=== PATIENT | female | born 1985 | race Caucasian/White ===

== ENCOUNTER 2023-12-22 12:39 | Emergency (ER) | payer OTHER, SELFPAY ==
--- NOTE | ~2023-12-22 | XR_ITS ---
EXAMINATION: XR finger 4th RT min 2V DATE: 12/22/2023 13:31 INDICATION: Right hand fourth digit injury. TECHNIQUE: 4 views of right hand fourth digit were obtained. COMPARISON: None. FINDINGS: There is a comminuted intra-articular fracture of fourth distal phalanx. There is 1 mm disp lacement of the fracture fragment at the dorsal base of fourth distal phalanx. Joint spaces are apurva l. IMPRESSION: 1. Comminuted intra-articular fracture of fourth distal phalanx. Reviewed, dictated and finalized at location A.
[2023-12-22 12:50] VITALS: BP 116/71; PULSE 59; RESP 15; TEMP 36.8; O2SAT 100
--- NOTE | 2023-12-22 13:22 | ED_ITS ---
HPI - General Adult General Chief complaint: Extremity Injury, Upper Stated complaint: Right Ring Finger Injury Source: patient Mode of arrival: ambulatory Limitations: no limitations History of Present Illness HPI narrative: Patient presents for evaluation of pain in the right ring finger since 11/28/2023. She indicates she was playing softball and the ball bounced up off the ground hitting the 4th digit. She now has 5/10 pain in the affected area with palpation or movement. Denies considerable pain otherwise. She has taken tylenol for her symptoms. She has associated numbness and redness to distal phalanx. Related Data Home Medications Medication Instructions Recorded Confirmed acyclovir 400 mg tablet mg 12/22/23 atenolol 50 mg tablet mg 12/22/23 Allergies Allergy/AdvReac Type Severity Reaction Status Date / Time fluconazole [From Diflucan] Allergy Hives Verified 12/22/23 13:13 latex Allergy Rash Verified 12/22/23 13:13 Review of Systems Review of Systems: CONSTITUTIONAL: Denies fever, chills, or sweats. EYES: Denies visual changes, redness, or discharge. ENT: Denies rhinorrhea, congestion, sore throat, or otalgia. CARDIOVASCULAR: Denies chest pain, palpitations, or edema. RESPIRATORY: Denies cough or dyspnea. GASTROINTESTINAL: Denies abdominal pain, nausea, vomiting, or diarrhea. GENITOURINARY: Denies dysuria or hematuria. SKIN: Reports redness and itching to the distal phalanx of the right ring finger MUSCULOSKELETAL: There is tenderness to the distal phalanx of the right ring finger NEUROLOGIC: Denies headache, numbness, dizziness, or weakness. PSYCHIATRIC: Denies anxiety or depression. PMFSH Past Medical History Medical History Hypertension Family History Family History Mother Family history unknown Social History Social History (Updated 12/22/23 @ 13:24 by BARRY Suárez, ) Living arrangements: with family Gender identity (if verbalized by the patient): Female Spiritual care concerns: No Exam Narrative: GENERAL: Well-appearing, well-nourished, and in no acute distress. HEAD: Normocephalic, atraumatic. EYES: PERRLA and EOMI. ENT: Nares clear, no rhinorrhea or epistaxis. Mucous membranes moist. Oropharynx without tonsillar hypertrophy exudate or other lesions. Bilateral TMs pearly hernandez nonbulging NECK: Supple. No adenopathy or masses. No carotid bruits or JVD CHEST: Clear to auscultation. No respiratory distress. No wheezes rales or rhonchi HEART: Regular rate and rhythm. No murmur heard. Normal peripheral pulses. ABDOMEN: Soft, nontender, nondistended, normal active bowel sounds. EXTREMITIES: Normal range of motion. There is tenderness to the distal phalanx of the right ring finger SKIN: There is erythema to the distal phalanx of the right ring finger NEURO: No focal deficits. Alert and oriented x3. PSYCH: Normal mood and affect. Course Course Emergency Course: This is a 38-year-old female who presented for evaluation of an injury to the right ring finger. X-ray showed fracture of distal phalanx. Provided with finger splint. Will refer her to Hand surgery. Discharge with hydrocodone. Follow-up primary provider. Go to the ER for intractable pain, temperature changes or worsening symptoms. Patient in agreement with care Level of Care: Express Care Visit Vital Signs Vital signs: Vital Signs Temperature 36.8 C 12/22/23 12:50 Pulse Rate 59 L 12/22/23 12:50 Respiratory Rate 15 12/22/23 12:50 Blood Pressure 116/71 12/22/23 12:50 Pulse Oximetry 100 12/22/23 12:50 Oxygen Delivery Room Air 12/22/23 12:50 Temperature 36.8 C 12/22/23 12:50 Pulse Rate 59 L 12/22/23 12:50 Respiratory Rate 15 12/22/23 12:50 Blood Pressure 116/71 12/22/23 12:50 Pulse Oximetry 100 12/22/23 12:50 Oxygen Delivery Room Air 12/22/23 12:50 Procedures Orthopedic Splinting/Casting Injury #1: Splinting/Casting Date: 12/22/23 Splinting/Casting Time: 13:51 Side: right Upper Extremity Immobilizer: aluminum form splint Splint: prefabricated Pre-Formed: metal foam finger splint Pre-Procedure Neuro Vascular Exam: normal Post-Procedure Neuro Vascular Exam: normal Medical Decision Making Vital Signs Vital Signs: Vital Signs Temperature 36.8 C 12/22/23 12:50 Pulse Rate 59 L 12/22/23 12:50 Respiratory Rate 15 12/22/23 12:50 Blood Pressure 116/71 12/22/23 12:50 Pulse Oximetry 100 12/22/23 12:50 Oxygen Delivery Room Air 12/22/23 12:50 Temperature 36.8 C 12/22/23 12:50 Pulse Rate 59 L 12/22/23 12:50 Respiratory Rate 15 12/22/23 12:50 Blood Pressure 116/71 12/22/23 12:50 Pulse Oximetry 100 12/22/23 12:50 Oxygen Delivery Room Air 12/22/23 12:50 Imaging Data Radiologist's impression: EXAMINATION: XR finger 4th RT min 2V DATE: 12/22/2023 13:31 INDICATION: Right hand fourth digit injury. TECHNIQUE: 4 views of right hand fourth digit were obtained. COMPARISON: None. FINDINGS: There is a comminuted intra-articular fracture of fourth distal phalanx. There is 1 mm displacement of the fracture fragment at the dorsal base of fourth distal phalanx. Joint spaces are normal. IMPRESSION: 1. Comminuted intra-articular fracture of fourth distal phalanx. Discharge Plan Discharge Clinical Impression: Distal phalanx or phalanges, closed fracture Qualifiers: Encounter type: initial encounter Finger: ring finger Laterality: right Patient Disposition: Home, Self-Care Condition: Stable Instructions: Antibiotic Form, Finger Fracture (ED) Patient Language: Bulgarian Prescriptions: New hydrocodone-acetaminophen 5-325 mg tablet 1 - 2 tablet PO Q8H PRN (Reason: pain) Qty: 12 0RF No Action acyclovir 400 mg tablet atenolol 50 mg tablet Follow-up/Referrals: Zach uBrns MD [Physician] - [facility],JENNIFER Song [Primary Care Provider] - Time of Disposition: 13:48
== END 2023-12-22 13:55 | disposition home or self-care (01) ==
PROVIDERS: Emergency Provider Nurse Practitioner; PCP Physician Assistant
DX: S62.634A Displaced fracture of distal phalanx of right ring finger, initial encounter for closed fracture (principal); W21.07XA Struck by softball, initial encounter; Y93.64 Activity, baseball; I10 Essential (primary) hypertension
CPT/HCPCS: 29130; 73140; 99214; G0463

== ENCOUNTER 2024-01-28 11:40 | Outpatient (CLI) | payer OTHER, SELFPAY ==
--- NOTE | ~2024-01-28 | XR_ITS ---
EXAMINATION: XR finger 4th RT min 2V DATE: 01/28/2024 12:00 INDICATION: Displaced fracture of the distal phalanx of the right fourth finger TECHNIQUE: Dorsal palmar, lateral and oblique views of the right fourth digit were obtained COMPARISON: 12/22/2023 FINDINGS: Again seen is a nondisplaced comminuted fracture of the tuft of the right fourth distal phalanx. Ther e is decreased lucency along the fracture planes consistent with some interval healing. Again seen is intra-articular fracture with minimal displacement of a small fragment involving the dorsal base of the distal phalanx with unchanged 1 mm step-off along the articular surface. There is similar decreas ed lucency along the fracture plane also consistent with some interval healing. No new fractures iden tified. 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 IMPRESSION: 1. Healing intra-articular fracture at the base of the right fourth distal phalanx with unchanged 1 m m step-off at the distal articular surface. 2. Healing nondisplaced comminuted fracture of the tuft of the right fourth distal phalanx. Reviewed, dictated and finalized at location A. LE BAR ASSEMBLER IMPRESSION: 1. Healing intra-articular fracture at the base of the right fourth distal phal anx with unchanged 1 mm step-off at the distal articular surface. 2. Healing nondisplaced comminuted fracture of the tuft of the right fourth dis cristin phalanx.
== END 2024-01-28 11:41 | disposition home or self-care (01) ==
PROVIDERS: PCP Physician Assistant; Visit Provider Physician Assistant Surgical
DX: S62.634D Displaced fracture of distal phalanx of right ring finger, subsequent encounter for fracture with routine healing (principal); X58.XXXD Exposure to other specified factors, subsequent encounter
CPT/HCPCS: 73140

== ENCOUNTER 2024-10-31 09:08 | Emergency (ER) | payer OTHER, SELFPAY ==
--- OUTSIDE RECORDS SUMMARY | 2024-10-31 09:10 | XMS_ITS | Encounter Summary ---
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 Gender Identity Not on file Sexual Orientation Not on file documented as of this encounter Plan of Treatment Not on file documented as of this encounter Procedures Procedure Name Priority Date/Time Associated Diagnosis Comments SARS-COV-2 (COVID-19) IN HOUSE Routine 08/09/2019 11:20 AM CDT documented in this encounter Results * SARS-COV-2 (COVID-19) IN HOUSE (08/09/2019 11:20 AM CDT) COVID-19 PCR Not detected Not detected, Invalid 08/10/2019 5:21 PM CDT [facility] Microbiology SPECIMEN FROM NASOPHARYNGEAL STRUCTURE / Unknown Collection / Unknown 08/09/2019 11:20 AM CDT 08/10/2019 9:09 AM CDT Narrative [facility] - 08/10/2019 5:21 PM CDT This Real Time RT-PCR assay was developed and its performance characteristics determined by [facility]. This test has been authorized by the Food and Drug administration (FDA)under an Emergency Use Authorization (EUA). This test has been validated in accordance with the FDA's guidance document Policy for Diagnostic Testing in Laboratories Certified to perform High Complexity Testing under CLIA prior to Emergency Use Authorization for Coronavirus Disease-2019 during the Public Health Emergency issued on April 25, 2019. FDA independent review of this validation is pending. This test is only authorized for the duration of time the declaration that circumstances exist justifying the authorization of emergency use of in vitro diagnostic tests for detection of SARS-CoV-2 virus and/or diagnosis of COVID-19 infection under section 564(b)(1) of the Act, 21 U.S.C 360bbb-3 (b)(1), unless the authorization is terminated or revoked sooner. Arpit Levin MD LAB - MICROBIOLOGY ORDERABL ES Final Result [facility] [address] [place] [address], [facility] [phone] documented in this encounter Visit Diagnoses Not on filedocumented in this encounter Additional Health Concerns Infection Onset Date Last Indicated Resolved Time COVID-19 Under Investigation 08/10/2019 08/09/2019 08/10/2019 5:21 PM CDT documented as of this encounter
--- OUTSIDE RECORDS SUMMARY | 2024-10-31 09:10 | XMS_ITS | Clinical Summary ---
Author Organization [facility] Address [address] [place] [address] Care Team Providers Care Adult Neuropsychologist Name Role Phone Unavailable Primary Care Provider Unavailabl e Source Comments [facility],non-owned Affiliates and Associated Physician Practices is amultiple site organization consisting of ambulatory clinics and hospital sitesin [place], [place], [place] and [place]. This disclosure is being madepursuant to the Care Everywhere program and may not contain all information available regarding this patient. Last updated 17.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 Gender Identity Not on file Sexual Orientation Not on file Plan of Treatment Health Maintenance Due Date Last Done Comments LIPID TESTING 1984 MAMMOGRAM 1984 HIV SCREENING 08/17/1999 HEPATITIS C SCREENING 08/12/2002 DTAP/TDAP/TD VACCINES (1 - Tdap) 08/17/2003 HEPATITIS B VACCINE (1 of 3 - 19+ 3-dose series) 08/17/2003 PAP SMEAR 2005 HPV VACCINE (1 - 3-dose SCDM series) 08/17/2011 COVID-19 VACCINE (1 - 2023-2 5 season) 2023 DEPRESSION SCREENING 02/26/2024 INFLUENZA VACCINE (#1) 2024 ZOSTER VACCINE (1 of 2) 2034 HIB VACCINE Aged Out No longer eligi ble based on patient's age to complete this topic MENINGOCOCCAL (Group B) VACC INE SHARED DECISION-MAKING Aged Out No longer eligibl e based on patient's age to complete this topic MENINGOCOCCAL GROUPS A/C/Y/W VACCINE Aged Out No longer eligible b ased on patient's age to complete this topic PNEUMOCOCCAL VACCINE Aged Out No long er eligible based on patient's age to complete this topic
--- OUTSIDE RECORDS SUMMARY | 2024-10-31 09:12 | XMS_ITS | Clinical Summary ---
Author Organization [facility] Address [address], [facility] [address] [place] [address] Phone Care Team Providers Care Certified Ophthalmic Surgical Assistant Name Role Phone Terry Vargas Primary Care Provider [phone] Adelaida Silva APRN, SYRUP FILTERER Unavailable Allergies Active Allergy Reactions Criticality Noted Date Comments Fluconazole Hives 03/16/2021 Latex Rash 04/30/2019 Medications atenolol (TENORMIN) 50 MG Tablet every morning. 0 Active traMADol (ULTRAM) 50 MG Tablet TAKE 1 TABLET BY MOUTH EVERY 8 HOURS NEEDED 0 Active meloxicam (MOBIC) 15 MG Tablet daily as needed. 9 Active levonorgestrel (MIRENA, 52 MG,) 20 MCG/24HR IUD Mirena 20 mcg/24 hours (5 yrs) 52 mg intrauterine device Take 1 device by intrauterine route. Active acyclovir (ZOVIRAX) 400 MG Tablet acyclovir 400 mg tablet TAKE 1 TABLET BY MOUTH TWICE DAILY Active omeprazole (PRILOSEC) 20 MG CAPSULE DELAYED RELEASE Take 20 mg by mouth daily. Active Multiple Vitamin (MULTI-VITAMIN PO) Take by mouth every morning. Active Multiple Vitamins-Minera ls (HAIR/SKIN/NAIL S/BIOTIN) Tablet Take by mouth every morning. Active simethicone (Gas-X Extra Strength) 125 MG Chewable Tablet Take 80 mg by mouth every 6 hours as needed. Active Fiber Formula Capsule Take by mouth. Activ e polyethylene glycol (GLYCOLAX, MIRALAX) 17 g Pack Take 17 g by mouth daily. Dissolve in 4-8 oz of liquid. Active Active Problems Problem Noted Date Diagnosed Date Abdominal bloating with cramps 10/31/2023 Encounters Date Type Department Care Team Description 09/09/2024 Transcribe Orders [facility] Central Scheduling [address] [place] [address] Yasmin Magana, RAD TECHNOLOGIST, SYRUP FILTERER Encounter for screening mammogram for malignant neoplasm of breast (Primary Dx) from Last 3 Months Family History Medical History Relation Name Comments Chronic Obstructive Pulmonar y Disease Father Congestive Heart Failure Father Hypertension Father Cancer Maternal Grandmother lymphom a Cancer Paternal Grandfather prostat e, bone adn skin Relation Name Status Comments Father Maternal Grandmother Paternal Grandfather Social History Tobacco Use Types Packs/Day Years Used Date Smoking Tobacco: Former Cigarettes 0.3 15 2 - 2016 Smokeless Tobacco: Never Alcohol Use Standard Drinks/Week Comments Yes 0 (1 standard drink = 0.6 oz pur e alcohol) rarley Comments No Sex and Gender Information Value Date Recorded Sex Assigned at Female 09/09/2024 2:37 PM CDT 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 Gender Identity Female 09/09/2024 2:37 PM CDT Sexual Orientation Straight 09/09/2024 2: 37 PM CDT Last Filed Vital Signs Vital Sign Reading Time Taken Comments Blood Pressure 106/74 10/31/2023 1:58 PM CDT Pulse 56 10/31/2023 1:58 PM CDT Temperature 36 C (96.8 F) 10/31/2023 1:58 PM CDT Respiratory Rate 12 10/31/2023 1:58 PM CDT Oxygen Saturation 98% 10/31/2023 1:58 PM CDT Inhaled Oxygen Concentration - - Weight 62.8 kg (138 lb 8 oz) 10/15/2023 3:16 PM CDT Height 156.2 cm (5' 1.5) 10/15/2023 3:16 PM CDT Body Mass Index 25.75 10/15/2023 3:16 PM CDT Plan of Treatment Health Maintenance Due Date Last Done Comments Hepatitis C Virus (HCV) Screening 1984 Mammogram 1984 TdaP Immunization 1984 Pap Smear 01/01/2010 01/01/2007 Human Papillomavirus (HPV) Immunization (1 - 3-dose SCDM series) 08/17/2011 Cervical Cancer Screening (CCS) 2014 HPV/Cotest 2014 Colonoscopy 08/11/2024 08/12/2019 Colorectal Cancer Screening 08/11/2024 Discussion re Starting/Frequency of Mammograms 2024 Influenza Immunization (#1) 2024 SARS-COV-2 Immunization ( - season) 2024 Respiratory Syncytial Virus (RSV) Immunization (Adult) (1 - 1-dose 75+ series) 08/17/2059 DTaP/Tdap/Td Immunization Discontinued 06/03/2003 Meningococcal Immunization (ACWY) Aged Out 06/03/2003 No longer eligible based on patient's age to complete this topic Hepatitis B Immunization Completed 006, 07/01/2003, 06/03/2003 Pneumococcal Immunization Combined Aged Out No longer eligible based on patient's age to complete this topic Rotavirus Immunization Aged Out No lo nger eligible based on patient's age to complete this topic [place] [address] [place] [address] Care Teams Certified Ophthalmic Surgical Assistant Relationship Specialty Start Date End Date Terry Vargas PAC [address] [place] [id number] PCP - General Physician Specialty Therapist 04/02/19 Adelaida Silva APRN, SYRUP FILTERER [address] [place] [address] Nurse Practitioner Advanced Practice Nurse 10/15/23
[2024-10-31 09:20] VITALS: BP 118/78; PULSE 69; RESP 20; TEMP 36.2; O2SAT 100
[2024-10-31 09:30] LABS: EDSTREPNEGPOS1 Negative (Negative)
--- NOTE | 2024-10-31 09:41 | ED.URI ---
HPI - URI/Sore Throat General Chief Complaint: Upper Respiratory Infection Stated Complaint: throat Time Seen by Provider: 10/31/24 09:30 Source: patient and RN notes reviewed Mode of arrival: ambulatory Limitations: no limitations History of Present Illness HPI Narrative: 39-year-old female presents Express Care complaining of sore throat for 3 days. Patient also reports postnasal drip. Patient denies any fevers, body aches, chills, cough, any other up upper respiratory symptoms, chest pain, difficulty breathing, difficulty swallowing, or other symptoms. Patient has been taking Tylenol to help with symptoms. Patient denies any significant past medical history. Related Data Home Medications ?Medication ?Instructions ?Recorded ?Confirmed ?Last Taken ?Type acyclovir 400 mg tablet mg 12/22/23 Unknown History atenolol 50 mg tablet mg 12/22/23 Unknown History atorvastatin 20 mg tablet mg 10/31/24 Unknown History Allergies Allergy/AdvReac Type Severity Reaction Status Date / Time fluconazole (From Diflucan) Allergy Hives Verified 01/28/24 11:25 latex Allergy Rash Verified 01/28/24 11:25 Review of Systems Review of Systems: CONSTITUTIONAL: Denies fever, chills, body aches, or sweats. EYES: Denies visual changes, redness, or discharge. ENT: Negative for rhinorrhea, congestion, or otalgia. Positive for sore throat. CARDIOVASCULAR: Denies chest pain, palpitations, or edema. RESPIRATORY: Negative for cough and dyspnea. GASTROINTESTINAL: Denies abdominal pain, nausea, vomiting, or diarrhea. GENITOURINARY: Denies dysuria or hematuria. SKIN: Denies rash or itching. MUSCULOSKELETAL: Denies back pain, joint pain, or myalgia. NEUROLOGIC: Denies headache, numbness, or weakness. PSYCHIATRIC: Denies anxiety or depression. All other systems reviewed are negative, except as documented in HPI. [facility] Past Medical History Medical History Hypertension Family History Family History Mother Family history unknown Social History Social History Smoking status: Never smoker Living arrangements: with family Gender identity (if verbalized by the patient): Female Spiritual care concerns: No Comments At the time of my signature, I reviewed and agree with the nursing past medical, surgical, social, and family history. There is no relevant family history pertinent to the patient complaint. Exam Narrative: GENERAL: This is a well-nourished, well-developed adult, in no apparent distress. They are non ill-appearing, nontoxic appearing. HEAD: normocephalic, atraumatic. EYES: Sclera clear/white. Vision is grossly intact. Conjunctiva normal bilaterally. Extraocular movements intact. EARS: External ears normal, auditory canals clear and without drainage, TMs without erythema or perforation. Hearing grossly intact. NOSE: External nose normal with no obvious nasal discharge, nasal turbinates without redness or swelling, no rhinorrhea. THROAT: Mucous membranes moist, posterior pharynx erythematous without exudate. Exudate present on tonsils. Uvula is midline. Postnasal drip present. NECK: Neck supple, non-tender without lymphadenopathy, masses or thyromegaly. CARDIOVASCULAR: Regular rate and rhythm without murmurs, gallops, or rubs. RESPIRATORY: Clear to auscultation. Breath sounds equal bilaterally. No wheezes, rales, or rhonchi. SKIN: warm, Dry, intact with no suspicious lesions or rash, good texture and turgor. NEURO: awake, alert, and oriented to person, place and time. There were no obvious focal neurologic abnormalities. EXTREMITIES: No joint tenderness, effusion, or edema noted. BACK: Nontender without deformity. Course Course Emergency Course: Portions of this record may have been created with voice recognition software Level of Care: Express Care Visit Vital Signs Vital signs: Vital Signs Temperature 97.2 F L 10/31/24 09:20 Pulse Rate 69 10/31/24 09:20 Respiratory Rate 10/31/24 09:20 Blood Pressure 118/78 10/31/24 09:20 Pulse Oximetry 100 10/31/24 09:20 Oxygen Delivery Room Air 10/31/24 09:20 Temperature 97.2 F L 10/31/24 09:20 Pulse Rate 69 10/31/24 09:20 Respiratory Rate 20 10/31/24 09:20 Blood Pressure 118/78 10/31/24 09:20 Pulse Oximetry 100 10/31/24 09:20 Oxygen Delivery Room Air 10/31/24 09:20 MDM - URI/Sore Throat MDM Narrative Medical decision making narrative: Rapid strep negative. A throat culture is pending. Symptoms likely viral in etiology. Discussed physical exam findings. Advised supportive measures and signs/symptoms to go to the ER. Pt is appropriate for outpt treatment and f/u. Differential Diagnosis Differential diagnosis: Likely upper respiratory infection, viral infection and pharyngitis Lab Data Attestation: I reviewed the patient's lab results. Labs: Lab Results 10/31/24 Range/Units 09:18 POC Grp A Strep Screen Negative (Negative) Discharge Plan Discharge Clinical Impression: Pharyngitis Patient Disposition: Home Condition: Stable Instructions: Pharyngitis (ED) Additional Instructions: Your rapid strep swab was negative today at [facility]. You will be notified in a few days if the culture comes back positive for strep, and appropriate antibiotics will be called in for you at that time. Your symptoms are likely due to a viral illness, which is not treated with antibiotics. Viral symptoms can be present for up to 10-14 days. Take Tylenol or ibuprofen for fever or pain. Follow the instructions on the bottle. Rest and stay hydrated. Follow up with your PCP in 3-5 days if symptoms are not improving. Go to the ER immediately if you develop difficulty breathing or swallowing Patient Language: Thai Prescriptions: No Action atorvastatin 20 mg tablet acyclovir 400 mg tablet atenolol 50 mg tablet Follow-up/Referrals: Alicia,JENNIFER Song [Primary Care Provider] Stand Alone Forms: Work/School Release IP Time of Disposition: 09:36
== END 2024-10-31 09:40 | disposition home or self-care (01) ==
PROVIDERS: PCP Physician Assistant
DX: J02.9 Acute pharyngitis, unspecified (principal); I10 Essential (primary) hypertension
CPT/HCPCS: 87081; 87880; 99213; G0463